=== PATIENT | female | born 1955 | race Caucasian/White ===

== ENCOUNTER → 2016-08-13 | Outpatient (CLI) | payer BC | LOC: OD 10:48 | PROVIDERS: ATTEND Internal Medicine | DX: M17.12 Unilateral primary osteoarthritis, left knee (principal); M19.011 Primary osteoarthritis, right shoulder ==

== ENCOUNTER → 2016-10-09 | Outpatient (CLI) | payer BC | LOC: SP 08:45 | PROVIDERS: ATTEND Internal Medicine | DX: I50.9 Heart failure, unspecified (principal); I10 Essential (primary) hypertension | CPT/HCPCS: 71020; 93306 ==

== ENCOUNTER 2016-12-12 14:07 | Emergency (ER) | payer BC ==
[2016-12-12] MEDS ORDERED: ONDANSETRON 4 MG TAB.RAPDIS PO ONE (15:37)
[2016-12-12] MEDS ORDERED: OXYCODONE-ACETAMINOPHEN 5-325 MG TABLET PO ONE (15:37)
--- NOTE | 2016-12-12 15:40 | ER Document Report ---
ED Medical Screen (RME) - General Chief Complaint: Abdominal Swelling Stated Complaint: ABDOMINAL SWELLING,NAUSEA,FEVER Time Seen by Provider: 12/12/16 15:37 Mode of Arrival: Wheelchair Information source: Patient Notes: Patient presents to the emergency department with complaints of abdominal pain nausea fever since Friday. Patient also complains of abdominal mass that started Friday. upon evaluation looks like an abdominal abscess. TRAVEL OUTSIDE OF THE [place] IN LAST 30 DAYS: No - Related Data Allergies/Adverse Reactions: lemon Allergy (Verified 12/12/16 14:22) peanut butter Allergy (Uncoded 12/12/16 14:22) Past Medical History - Past Medical History Cardiac Medical History: Reports: Hx Hypertension - ON MEDS Denies: Hx Heart Attack Pulmonary Medical History: Denies: Hx Asthma Neurological Medical History: Denies: Hx Cerebrovascular Accident, Hx Seizures Renal/ Medical History: Denies: Hx Peritoneal Dialysis GI Medical History: Denies: Hx Hepatitis, Hx Hiatal Hernia, Hx Ulcer Infectious Medical History: Denies: Hx Hepatitis Past Surgical History: Denies: Hx Hysterectomy, Hx Mastectomy, Hx Open Heart Surgery, Hx Pacemaker Physical Exam - Vital signs Vitals: Pulse Resp BP Pulse Ox 116 H 20 117/63 98 12/12/16 14:22 12/12/16 14:22 12/12/16 14:22 12/12/16 14:22 Course - Vital Signs Vital signs: Temp Pulse Resp BP Pulse Ox 116 H 20 117/63 98 12/12/16 14:22 12/12/16 14:22 12/12/16 14:22 12/12/16 14:22
[2016-12-12 16:16] LABS: HEMATOCRIT 43.3 % (36.0-47.0); HEMOGLOBIN 13.8 g/dL (12.0-15.5); HGB HCT DIFFERENCE -1.9; MEAN CORPUSCULAR HEMOGLOBIN 26.8 pg (27.0-33.4); MEAN CORPUSCULAR VOLUME 84 fl (80-97); RED BLOOD COUNT 5.16 10^6/uL (3.72-5.28); WHITE BLOOD COUNT 24.4 10^3/uL (4.0-10.5)
[2016-12-12 16:38] LABS: ALANINE AMINOTRANSFERASE 29 U/L (9-52); ALBUMIN 3.2 g/dL (3.5-5.0); ALKALINE PHOSPHATASE 94 U/L (38-126); ASPARTATE AMINO TRANSFERASE 17 U/L (14-36); BILIRUBIN,DIRECT 0.9 mg/dL (0.0-0.4); BILIRUBIN,TOTAL 0.9 mg/dL (0.2-1.3); CALCIUM 9.1 mg/dL (8.4-10.2); CARBON DIOXIDE 13 mmol/L (22-30); CHLORIDE 99 mmol/L (98-107); GLUCOSE 221 mg/dL (75-110); LIPASE 52.9 U/L (23-300); POTASSIUM 5.5 mmol/L (3.6-5.0); SODIUM 133.8 mmol/L (137-145); TOTAL PROTEIN 6.5 g/dL (6.3-8.2)
[2016-12-12 16:45] LABS: BASOPHILS % (MANUAL) 0 % (0-2); EOSINOPHILS % (MANUAL) 0 % (0-6); LYMPHOCYTES % (MANUAL) 6 % (13-45); TOTAL CELLS COUNTED 100
[2016-12-12 16:46] LABS: BLOOD UREA NITROGEN 121 mg/dL (7-20)
[2016-12-12 16:47] LABS: ANISOCYTOSIS 1+; HYPOCHROMASIA SLIGHT; POIKILOCYTOSIS 2+
[2016-12-12 16:48] LABS: BAND NEUTROPHILS % (MANUAL) 15 % (3-5); BURR CELLS 1+; OVALOCYTES 1+; PLATELET CLUMPS PRESENT
[2016-12-12 16:56] LABS: ANION GAP 24 (5-19)
[2016-12-12] MEDS ORDERED: NORMAL SALINE 1000 ML 1,000 ML IV PRN ×2 (16:58→20:14)
[2016-12-12] MEDS ORDERED: PIPERACILLIN/TAZOBACTAM 3.375 GM VIAL IV ONE (16:59)
[2016-12-12] MEDS ORDERED: VANCOMYCIN HCL INJ 1000 MG VIAL IV ONE (17:04)
--- NOTE | 2016-12-12 17:31 | ER Document Report ---
ED General - General Chief Complaint: Abdominal Swelling Stated Complaint: ABDOMINAL SWELLING,NAUSEA,FEVER Time Seen by Provider: 12/12/16 15:37 Mode of Arrival: Wheelchair Information source: Patient Notes: This is a 61-year-old female with a history of diabetes and hypertension that presents to the emergency room with a one-week history of decreased p.o. intake , nausea, intermittent fevers and swelling and redness of the abdominal wall. Patient denies any diarrhea. Patient denies any vomiting. Patient denies any abdominal pain. The patient states she ate [place] food last and started to feel bad on Friday. Her symptoms persisted for the past 5 days. TRAVEL OUTSIDE OF THE [place] IN LAST 30 DAYS: No - HPI Onset: Last week Onset/Duration: Gradual Quality of pain: No pain Severity: None Pain Level: Denies Associated symptoms: Chills, Fever, Nausea. denies: Diarrhea, Vomiting, Shortness of breath Exacerbated by: Denies Relieved by: Denies Similar symptoms previously: No Recently seen / treated by doctor: No - Related Data Allergies/Adverse Reactions: lemon Allergy (Verified 12/12/16 14:22) peanut butter Allergy (Uncoded 12/12/16 14:22) Home Medications: Current Home Medications Clonidine 0.6 mg TOP GARCIA@1000 12/12/16 [History] Furosemide [Lasix 20 mg Tablet] 20 mg PO QPM 12/12/16 [History] Furosemide [Lasix] 40 mg PO QAM 12/12/16 [History] Lorazepam [Ativan 0.5 mg Tablet] 0.5 mg PO BIDP PRN 12/12/16 [History] Losartan/Hydrochlorothiazide [Hyzaar 100-25 Tablet] 1 tab PO DAILY 12/12/16 [ History] Metformin HCl [Glucophage] 1,000 mg PO BID 12/12/16 [History] Past Medical History - General Information source: Patient - Social History Smoking Status: Never Smoker Chew tobacco use (# tins/day): No Frequency of alcohol use: None Drug Abuse: None Lives with: Spouse/Significant other Family History: Reviewed & Not Pertinent Patient has suicidal ideation: No Patient has homicidal ideation: No - Past Medical History Cardiac Medical History: Reports: Hx Hypertension - ON MEDS Denies: Hx Heart Attack Pulmonary Medical History: Denies: Hx Asthma Neurological Medical History: Denies: Hx Cerebrovascular Accident, Hx Seizures Renal/ Medical History: Denies: Hx Peritoneal Dialysis GI Medical History: Denies: Hx Hepatitis, Hx Hiatal Hernia, Hx Ulcer Infectious Medical History: Denies: Hx Hepatitis Past Surgical History: Denies: Hx Hysterectomy, Hx Mastectomy, Hx Open Heart Surgery, Hx Pacemaker Review of Systems - Review of Systems Constitutional: Chills, Fever, Weakness EENT: No symptoms reported Cardiovascular: No symptoms reported Respiratory: No symptoms reported Gastrointestinal: See HPI Genitourinary: No symptoms reported Female Genitourinary: No symptoms reported Musculoskeletal: No symptoms reported Skin: No symptoms reported Hematologic/Lymphatic: No symptoms reported Neurological/Psychological: No symptoms reported Physical Exam - Vital signs Vitals: Pulse Resp BP Pulse Ox 116 H 20 117/63 98 12/12/16 14:22 12/12/16 14:22 12/12/16 14:22 12/12/16 14:22 Notes: Physical exam: GENERAL: 61-year-old female, alert and oriented 3, appears quite dehydrated. HEAD: Atraumatic, normocephalic. EYES: Pupils equal round and reactive to light, extraocular movements intact, sclera anicteric, conjunctiva are normal. ENT: TMs normal, nares patent, oropharynx clear without exudates. Moist mucous membranes. NECK: Normal range of motion, supple without lymphadenopathy or JVD. LUNGS: Breath sounds clear to auscultation bilaterally and equal. No wheezes rales or rhonchi. HEART: Regular rate and rhythm without murmurs, rubs or gallops. ABDOMEN: Soft, hypoactive bowel sounds. Patient has a large pannus. The right side of the pannus is very indurated and appears erythematous. There is no fluctuance. Rectal: Perirectal area is without lesions. Stool is brown. There is some minimal stool in the vault. No obvious masses. Stool sent for study. EXTREMITIES: Normal range of motion, no pitting or edema. No clubbing or cyanosis. NEUROLOGICAL: Cranial nerves II through XII grossly intact. Normal speech, normal gait. PSYCH: Normal mood, normal affect. SKIN: Warm, Dry, normal turgor, no rashes or lesions noted. Course - Re-evaluation Re-evalutation: 12/12/16 20:24 Note: The patient does have a large ventral hernia with dilated loops of bowel suggestive of partial bowel obstruction. I have had the surgeon (Dr rodriguez) evaluate the patient and he feels that the patient has a large incarcerated ventral hernia and that the patient will require a complicated surgery and is best served at a tertiary care center. Due to has been placed. the patient does have significant elevation of BUN and creatinine suggestive of acute kidney injury. A Miranda was placed. She has had 2 L normal saline and is now starting to make urine. She currently on her third liter of fluid. Had a white count (24,000) with a significant bandemia. Her lactic acid is 1.9. She was received IV vancomycin and IV Zosyn. Discussed case with Dr. Torres who is her primary care doctor and we are transferring the patient to [facility]. I have spoken to the surgeon at [facility] willing to accept the patient. The patient will be transported ER to ER. - Vital Signs Vital signs: Temp Pulse Resp BP Pulse Ox 116 H 25 H 133/55 H 97 12/12/16 14:22 12/12/16 19:01 12/12/16 19:01 12/12/16 17:01 - Laboratory Result Diagrams: 12/12/16 15:52 12/12/16 15:52 Laboratory results interpreted by me: 12/12/16 12/12/16 15:52 15:52 WBC 24.4 H MCH 26.8 L RDW 16.0 H Band Neutrophils % 15 H Lymphocytes % (Manual) 6 L Abs Neuts (Manual) 21.5 H Abs Monocytes (Manual) 1.5 H Sodium 133.8 L Potassium 5.5 H Carbon Dioxide 13 L Anion Gap 24 H BUN 121 H Creatinine 2.50 H Est GFR ( Amer) 24 L Est GFR (Non-Af Amer) 20 L Glucose 221 H Direct Bilirubin 0.9 H Albumin 3.2 L - Diagnostic Test Radiology reviewed: Image reviewed, Reports reviewed - CT of the abdomen shows a large ventral hernia with dilated loops of bowel concerning for partial bowel obstruction. Does have a panniculitis Critical Care Note - Critical Care Note Total time excluding time spent on procedures (mins): 90 Discharge - Discharge Clinical Impression: Panniculitis, Acute renal failure, Dehydration Condition: Serious Disposition: [facility]
--- NOTE | 2016-12-12 18:16 | RADIOLOGY REPORT (SQ) ---
EXAM DESCRIPTION: CT ABD/PELVIS NO ORAL OR IV COMPLETED DATE/TIME: 12/12/2016 5:37 pm REASON FOR STUDY: llq panniculitis, elevated bun/creat COMPARISON: None. TECHNIQUE: CT scan of the abdomen and pelvis performed without intravenous or oral contrast. Images reviewed with lung, soft tissue, and bone windows. Reconstructed coronal and sagittal MPR images revi ewed. All images stored on PACS. All CT scanners at this facility use dose modulation, iterative reconstruction, and/or weight based d osing when appropriate to reduce radiation dose to as low as reasonably achievable (ALARA). [facility]: Dose Right [facility]: CareDose [facility]: Dose Right [facility]: Teradose 4D [facility]: [place] RADIATION DOSE: 24.87mGy. LIMITATIONS: None. FINDINGS: LOWER CHEST: No significant findings. No nodules or infiltrates. NON-CONTRASTED LIVER, SPLEEN, ADRENALS: There is a 35 mm fluid collection immediately adjacent to the left adrenal gland and the stomach. There is some air within this collection. PANCREAS: No masses. No peripancreatic inflammatory changes. GALLBLADDER: No identified stones by CT criteria. No inflammatory changes to suggest cholecystitis. RIGHT KIDNEY AND URETER: No suspicious masses. Assessment limited by lack of IV contrast. There are some small nonobstructing intrarenal calculi. No hydronephrosis or hydroureter. LEFT KIDNEY AND URETER: No suspicious masses. Assessment limited by lack of IV contrast. There are some small nonobstructing intrarenal calculi. No hydronephrosis or hydroureter. AORTA AND RETROPERITONEUM: No aneurysm. No retroperitoneal masses or adenopathy. BOWEL AND PERITONEAL CAVITY: There are gas-filled distended loops of bowel anteriorly. There is a la rge ventral hernia containing a loop of bowel. There is stranding in the fat around these herniated loops of bowel. APPENDIX: Not identified. PELVIS, BLADDER, AND ABDOMINAL WALL:Calcified uterine fibroids are present. There is no pelvic mass or fluid collection. BONES: No significant findings. OTHER: No other significant finding. IMPRESSION: 1. Large ventral hernia containing a loop of bowel. This, together with the dilated lo ops of bowel in the anterior abdomen raises the possibility of a partial bowel obstruction. 2. Panniculitis. 3. Fluid collection containing a small amount of air adjacent to the stomach and the left adrenal gl and. This probably represents some type of gastric diverticulum. TECHNICAL DOCUMENTATION: JOB ID: [id number] Quality ID # [id number]: Final reports with documentation of one or more dose reduction techniques (e.g., Au tomated exposure control, adjustment of the mA and/or kV according to patient size, use of iterative reconstruction technique) 2010 [employer]- All Rights Reserved
[2016-12-12] MEDS: NORMAL SALINE 1000 ML 1,000 ML IV PRN ×2 (19:34→20:44)
[2016-12-12 19:51] LABS: AMORPHOUS SEDIMENT,URINE TRACE /HPF; APPEARANCE,URINE CLOUDY; BILIRUBIN,URINE SMALL (NEGATIVE); GLUCOSE, URINE 50 mg/dL (NEGATIVE); KETONES,URINE TRACE mg/dL (NEGATIVE); LEUKOCYTE ESTERASE,URINE NEGATIVE (NEGATIVE); NITRITE,URINE NEGATIVE (NEGATIVE); PROTEIN,URINE 30 mg/dL (NEGATIVE); URINE SPECIFIC GRAVITY 1.019; UROBILINOGEN,URINE NEGATIVE mg/dL (<2.0)
[2016-12-12 21:49] VITALS: BP 169/61
--- NOTE | 2016-12-12 22:34 | CONSULTATION REPORT E ---
Consultation Report NAME: MARITA YOUNG : 1955 AGE: 61Y DATE: 12/12/2016 ED16 A TO: URVASHI GUARDADO M.D. FROM: TRACY CLIFFORD M.D. Requesting Physician REASON FOR CONSULTATION: The patient with incarcerated ventral hernia with partial bowel obstruction. HISTORY OF PRESENT ILLNESS: This is a 61-year-old female with history of diabetes and hypertension. She presents to the emergency room with about a week history of not feeling well and feeling weak, decreased p.o. intake with nausea and intermittent fever, swelling, and redness of the abdominal wall, as well as constipation. She blames her discomfort from eating bad [place] food a week ago. She admits to having chills, fever and nausea. REVIEW OF SYSTEMS: As in HPI. Denies any chest pain, shortness of breath, or diarrhea. No dysuria. No headaches or hearing problems. She does have some vision problems and has having eye followup with implants on both eyes for diabetes related eye problems. She denies knowing that she has a ventral hernia. She did have 2 previous sections, the last one was about 29 years ago. Even the thought that she does not have any ventral hernia. She did have a CAT scan of the abdomen in the emergency room, which showed an incarcerated enlarged ventral hernia with partial bowel obstruction. ALLERGIES: PEANUT BUTTER. MEDICATION: She takes blood pressure medications and metformin for her diabetes. SOCIAL HISTORY: Denies smoking, drinking, or drug use. PAST MEDICAL HISTORY: 1. History of hypertension. 2. Diabetes mellitus on metformin. 3. History of section x2. PHYSICAL EXAMINATION: GENERAL: A 61-year-old female alert and oriented. Appears to be weak and very dehydrated. The patient is complaining of being thirsty. Her mucous membranes and pharynx are dry. HEAD: Normocephalic. EYES: Anicteric. Conjunctivae are normal. EAR, NOSE, THROAT: No mucous exudates. Normal oropharynx. LUNGS: Clear. HEART: Regular sinus rhythm. ABDOMEN: Thick, large pannus in the lower abdomen with the skin erythematous. When lifted up, the patient complained of pain and unable to reduce any hernia at this time. It appears to be markedly indurated. No external lesions noted. She has lower midline scar from section. LABORATORY DATA: White count of 24,000 with 15% bands. BUN 120, creatinine of 2.5. CAT scan showed large ventral hernia with partial bowel obstruction. IMPRESSION: 1. INCARCERATED LARGE VENTRAL HERNIA WITH PARTIAL BOWEL OBSTRUCTION. 2. POSSIBLE PANNICULITIS VERSUS STARTING STRANGULATION. RECOMMENDATIONS: At this point the patient will need very complicated and difficult repair of the ventral hernia. The hernia appears to be outside the abdomen and maybe difficult to reduce. She may also need biologic mesh if there is any evidence of infection, which we do not have at [facility] at this time. I discussed the case with the ER physician and suggested transferring the patient to [facility] for better resources in taking care of this difficult patient. I agree with continuing hydrating her and start on IV antibiotics. DICTATING PHYSICIAN: URVASHI GUARDADO M.D. [id number] PHY#: [id number] ID: [id number] JOB#: [id number] ACCT: [id number] cc:URVASHI GUARDADO M.D. >
[2016-12-13 14:55] LABS: PATH REVIEW PATHOLOGIST REVIEWED
== END 2016-12-12 21:59 | disposition short-term general hospital (02) ==
LOC: ER 14:07 → EH 17:40 → UNDOADMIN 17:40 → UNDODISIN 21:59 → ER 21:59 → EH 22:00 → ER 22:01 → EH 22:01
DX: M79.3 Panniculitis, unspecified (principal); E86.0 Dehydration; N19 Unspecified kidney failure; K43.9 Ventral hernia without obstruction or gangrene; R11.0 Nausea; R50.9 Fever, unspecified; R10.9 Unspecified abdominal pain; R53.1 Weakness; I10 Essential (primary) hypertension; Z91.010 Allergy to peanuts
CPT/HCPCS: 99291; 99292; 96365; 96366; 96367; 36415; 87040; 83690; 85025; 82272; 80053; 81001; 83605; 74176; S0119; J7030; J3370; J2543